=== PATIENT | female | born 1975 | race Caucasian/White ===

== ENCOUNTER 2024-06-24 19:26 | Emergency (ER) | payer OTHER, SELFPAY ==
[2024-06-24 19:29] VITALS: BP 150/108
[2024-06-24 19:50] LABS: Urine Albumin Negative (Neg - Trace); Urine Bilirubin Negative (Negative); Urine Character Clear (Clear); Urine Color Yellow; Urine Glucose Negative (Negative); Urine Ketone Negative (Negative); Urine Leukocyte Trace (Negative); Urine Nitrite Negative (Negative); Urine Occult Blood Negative (Negative); Urine Urobilinogen Negative (Neg - 1+)
[2024-06-24 19:52] VITALS: BMI 36.1
[2024-06-24 20:01] LABS: Urine Bacteria Few (Negative); Urine Squamous Cell >30 /LPF (Few)
[2024-06-24 20:09] LABS: % Basophils 0.5 % (0-2); % Eosinophils 1.8 % (0-6); % Immature Granulocytes 0.3 % (0-0.5); % Lymphocytes 40.9 % (20.5-51.1); % Monocytes 12.3 % (1.7-9.3); % Neutrophils 44.2 % (42.2-75.2); Absolute Eosinophils 0.1 10^3/uL (0-0.7); Absolute Monocytes 0.9 10^3/uL (0.1-0.6); Absolute Neutrophils 3.3 10^3/uL (1.4-6.5); Hematocrit 38.9 % (37.0-47.0); Hemoglobin 13.6 g/dL (12.0-16.0); Mean Corpuscular Hgb 29.7 pg (27.0-31.0); Mean Corpuscular Volume 84.9 fL (81.0-99.0); Mean Platelet Volume 9.8 fL (7.4-10.4); Nucleated Red Blood Cells % 0 %; Platelet Count 262 10^3/uL (130-400); Red Blood Cell Count 4.58 10^6/uL (4.20-5.40); Red Cell Dist. Width 12.9 % (11.5-14.5); White Blood Cell Count 7.4 10^3/uL (4.8-10.8)
--- NOTE | 2024-06-24 20:10 | ED.GENMED ---
History of Present Illness
General
Chief Complaint: Flank Pain
Source: patient
Time Seen by Provider: 06/24/24 19:53
History of Present Illness
History of Present Illness:
49-year-old female with past medical history of autoimmune hepatitis, previous kidney stones, colitis presenting to the emergency department for evaluation of left lower to mid quadrant abdominal pain that started yesterday, slightly worse today
prompting her to come into the ER for further evaluation. Yesterday patient notes that she did have some small liquidy stool, today had normal stool. Notes she does feel little bit nauseous but states that this is tolerable. No change in p.o.
intake to solids or liquids. Denies any fevers, chills, rigors. She does state the pain does feel different than her previous kidney stone pain. She took 2 Gas-X earlier today without any relief. Notes that she is currently working with her
surgical team at the [facility] due to multiple hernias and is supposed to be potentially having surgery in the coming new year for a large right-sided abdominal hernia.
Past History
Past History
ED Past Medical History: HTN and Other (Autoimmune hepatitis, colitis)
ED Past Surgical History: , Orthopedic and Other
Social History
Tobacco: Non-smoker
Alcohol: None
Drug: None
Personal:
Living: with family
Review of Systems
Review of Systems
All Other Systems: ROS reviewed and negative except as documented in HPI and ROS
Phy Exam
Physical Exam
Physical Exam:
GENERAL: Alert , in no apparent distress
EYE: clear conjunctiva b/l
HEAD: NCAT
ENT: o/p clr, mmm.
CARDIAC: Regular rate and rhythm .
LUNGS: Clear breath sounds bilaterally, no acute respiratory distress, no wheezes/rales/rhonchi
ABDOMEN: Soft, mild to moderate left mid abdominal tenderness to lower quadrant abdominal tenderness, no r/g, no cvat
NEUROLOGICAL: Alert and oriented
SKIN: Warm and dry, skin intact.
MUSCULOSKELETAL: No edema, well perfused.
PSYCH: Normal and appropriate interaction.
Scores
Heart Failure Risk
Heart Failure Risk Score: Not Applicable
Heart Score for Chest Pain Patients
STEMI patient?: Not applicable
Withdrawal Assessment of Alcohol
Withdrawal Assessment Completed?: Not applicable
Course
Orders/Labs/Results
Orders:
Orders
06/24/24 19:42
Urinalysis Reflex To Culture Urgent
Date Specimen was Collected: 06/24/24
Time Specimen was Collected: 19:41
Urine Microscopic Reflex Cult Urgent
Urine Culture Urgent
MICHELINE Source: U
Specimen Description:
Date Specimen was Collected: 06/24/24
Time Specimen was Collected: 19:41
06/24/24 19:53
IV Insert/Care/Rem.- Treatment PRN
06/24/24 19:54
Test Result ONCE
06/24/24 20:01
Complete Blood Count/With Diff Urgent
Comprehensive Metabolic Panel Urgent
HCG, Serum Qualitative Screen Urgent
Comment: Notify provider if positive test present
Lipase Urgent
06/24/24 20:06
CT Abd/pelvis W Iv Cont Urgent
Comment:
Reason For Exam: LLQ pain, multiple hernias
Ketorolac [Toradol] 30 mg IV NOW STA
Abnormal Lab Results
06/24/24 06/24/24
19:42 20:01
Absolute Monos (auto) 0.9 H 10^3/uL
(0.1-0.6)
Monocytes % 12.3 H %
(1.7-9.3)
Glucose 112 H mg/dl
(70-99)
Lipase 368 H U/L
(23-300)
Leukocyte Esterase Rfl Trace A
(Negative)
Urine WBC (Reflex) 11-15 A /HPF
(0-5)
Urine Bacteria (Reflex) Few A
(Negative)
06/24/24 20:01
06/24/24 20:01
Vital Signs
Initial and Last Documented VS:
Initial Vital Signs
Pulse Resp BP Pulse Ox
100 22 150/108 99
06/24/24 19:29 06/24/24 19:29 06/24/24 19:29 06/24/24 19:29
Last Documented Vital Signs
Pulse Resp BP Pulse Ox
80 16 118/85 98
06/24/24 22:00 06/24/24 22:00 06/24/24 22:00 06/24/24 22:00
MDM/Problems Addressed
Differential Diagnosis Includes:
Diverticulitis, colitis, renal/ureteral colic, hernia, urinary tract infection
MDM/Problems Addressed:
49-year-old female presenting to the ER for evaluation of left mid to lower abdominal pain x 1 day, yesterday had some loose stool, today no abnormalities. Patient notes a history of kidney stone however states this pain feels different and she
does not have any flank or CVA tenderness. Will check labs, urine, CT imaging. Pain control with Toradol. Reassessment following.
Chronic conditions affecting care: Previous abdomnial surgery
*Radiology
Radiology exam reviewed: radiology read reviewed
*Pulse Oximetry
Patient hypoxic: no
*Critical Care Note
Total Time (30-74mins, 75-104mins- exclusive of procedures): Not Applicable
Patient Management
Social determinants of health affecting care: Strong social support
Escalation/DeEscalation of care consider admission/obs:
Patient's labs do show mild elevation of the lipase but are largely otherwise unremarkable. Patient notes symptoms are improved with medication here. CT scan with all chronic findings and nothing acute. Discussed liquid based diet for the next 24
to 48 hours. Patient to follow-up with her team at [place] and is otherwise aware of return precautions to the ER here.
ED Attending Note
-
Portions of this chart may have been created with voice recognition software.� Occasional wrong word or��sound alike� substitutions may have occurred due to the inherent limitations of voice recognition software.
Discharge Plan
Departure
Patient Disposition: Home (Routine Discharge)
Date of Disposition: 06/24/24
Time of Disposition: 21:25
Patient with high blood pressure during this ER visit?: Yes
Discharge Problem:
Abdominal pain, Abdominal hernia
Instructions: Abdominal Pain
Referrals:
Demetrius Arredondo MD [Family Provider] -
Interventions
Interventions:
*Risk Screen - Suicide Last Done: 06/24/24 19:29
*General Assessment Last Done: 06/24/24 19:45
*Neglect/Abuse Screening Last Done: 06/24/24 19:29
ED- Fall Risk Assessment Last Done: 06/24/24 19:45
*ED COVID-19 Vaccine History Last Done: 06/24/24 19:45
*Nursing Disposition Last Done: 06/24/24 22:00
CF-Sxpudd-Wucjrtamsq Assessment Last Done: 06/24/24 19:45
ED-Female Genitourinary Assessment Last Done: 06/24/24 19:45
Discharge Date and Time
Discharge Date/Time: 06/24/24 22:00
Print Language: CHINESE
[2024-06-24 20:26] LABS: HCG, Serum Qualitative Screen Negative
[2024-06-24 20:29] LABS: ALT (SGPT) 28 U/L (0-35); AST (SGOT) 35 U/L (14-36); Alkaline Phosphatase 55 U/L (38-126); Blood Urea Nitrogen 13 mg/dl (7-17); Calcium 9.5 mg/dl (8.4-10.2); Carbon Dioxide 22 mmol/L (22-30); Chloride 105 mmol/L (98-107); Estimated Creatinine Clearance > 125 ml/min; Glucose 112 mg/dl (70-99); Lipase 368 U/L (23-300); Potassium 3.6 mmol/L (3.5-5.1); Sodium 141 mmol/L (135-145); Total Bilirubin 0.2 mg/dl (0.2-1.3); Total Protein 6.6 g/dl (6.3-8.2); eGFR > 60.00
[2024-06-24] MEDS: TORADOL 30 MG IV (20:44)
[2024-06-24 22:00] VITALS: BP 118/85
== END 2024-06-24 22:00 | disposition home or self-care (01) ==
LOC: EMR 19:26
PROVIDERS: EMERGENCY PHYSICIAN Emergency Medicine; FAMILY PHYSICIAN Internal Medicine Gastroenterology
DX: K43.9 Ventral hernia without obstruction or gangrene (principal); I10 Essential (primary) hypertension; K75.4 Autoimmune hepatitis; Z87.442 Personal history of urinary calculi
CPT/HCPCS: 96374; 99284; 74177; 80053; 81003; 81015; 83690; 84703; 85025; 87086; Q9967

== ENCOUNTER 2024-10-22 11:58 | Emergency (ER) | payer OTHER, SELFPAY ==
[2024-10-22 12:02] VITALS: BP 123/90
[2024-10-22 12:23] LABS: % Basophils 0.4 % (0-2); % Eosinophils 3.3 % (0-6); % Immature Granulocytes 0.6 % (0-0.5); % Lymphocytes 17.6 % (20.5-51.1); % Monocytes 9.8 % (1.7-9.3); % Neutrophils 68.3 % (42.2-75.2); Absolute Eosinophils 0.2 10^3/uL (0-0.7); Absolute Monocytes 0.5 10^3/uL (0.1-0.6); Absolute Neutrophils 3.7 10^3/uL (1.4-6.5); Hemoglobin 14.3 g/dL (12.0-16.0); Mean Corpuscular Hgb 28.9 pg (27.0-31.0); Mean Corpuscular Volume 84.8 fL (81.0-99.0); Mean Platelet Volume 10.4 fL (7.4-10.4); Nucleated Red Blood Cells % 0 %; Platelet Count 251 10^3/uL (130-400); Red Blood Cell Count 4.95 10^6/uL (4.20-5.40); Red Cell Dist. Width 13.4 % (11.5-14.5); White Blood Cell Count 5.4 10^3/uL (4.8-10.8)
[2024-10-22 12:38] LABS: ALT (SGPT) 63 U/L (0-35); AST (SGOT) 58 U/L (14-36); Alkaline Phosphatase 70 U/L (38-126); Blood Urea Nitrogen 13 mg/dl (7-17); Calcium 9.3 mg/dl (8.4-10.2); Carbon Dioxide 22 mmol/L (22-30); Chloride 105 mmol/L (98-107); Glucose 99 mg/dl (70-99); Lipase 137 U/L (23-300); Potassium 3.6 mmol/L (3.5-5.1); Sodium 137 mmol/L (135-145); Total Bilirubin 0.4 mg/dl (0.2-1.3); Total Protein 7.3 g/dl (6.3-8.2); eGFR > 60.00
[2024-10-22 13:45] VITALS: BMI 33.5
--- NOTE | 2024-10-22 14:05 | ED.GENMED ---
History of Present Illness
<Vivien Schwab, SUPERVIS[employer] - Last Filed: 10/23/24 20:25>
General
Chief Complaint: Abdominal Symptoms
Source: patient
Exam Limitations: none
Time Seen by Provider: 10/22/24 13:19
Nursing documentation reviewed up to this point in time: agreed with
History of Present Illness
History of Present Illness:
49 yo female with h/o HTN, ulcerative colitis (takes Lialda), autoimmune liver disease (takes CellCept)had laparoscopic hernia repair 4 weeks ago, had one dose preop antibiotics only. Presents for generalized abdominal pain and diarrhea for past 3
days. Started with stomach cramps then watery diarrhea. Denies fever/chills. Feels nauseous but no vomiting. Has noted bright yellow mucus stools at times. Diarrhea any time she eats. Also has been belching a lot and gas.
Past History
<Vivien Schwab, [employer]PER[employer] - Last Filed: 10/23/24 20:25>
Past History
ED Past Medical History: HTN and Other (Autoimmune hepatitis, colitis)
ED Past Surgical History: , Orthopedic and Other
Social History
Tobacco: Non-smoker
Alcohol: None
Drug: None
Personal:
Living: with family
Review of Systems
<Vivien Schwab, SUPER[employer] - Last Filed: 10/23/24 20:25>
Review of Systems
Allergies reviewed?: Yes
All Other Systems: ROS reviewed and negative except as documented in HPI and ROS
Constitutional: Denies fever or chills
Respiratory: Denies trouble breathing
Cardiac: Denies chest pain
ABD/GI: Reports abdominal pain, nausea and diarrhea; Denies vomiting or bloody stools
: Denies dysuria, frequency or difficulty voiding
Musculoskeletal: Reports no symptoms
Skin: Reports no symptoms
Neurological: Reports no symptoms
Phy Exam
<Vivien Schwab, SUPER[employer] - Last Filed: 10/23/24 20:25>
Physical Exam
Physical Exam:
GENERAL: No acute distress. A&Ox3.
CONSTITUTIONAL: Afebrile.
EYES: clear, conjunctivae normal
ENMT: moist mucus membranes, Pharynx nl
RESPIRATORY: Regular respirations, nonlabored, lungs clear.
CARDIOVASCULAR: Regular rate and rhythm, no murmurs, no rubs.
GI: Rotund, generally tender, normal BS
MUSCULOSKELETAL: Moves with ease. Well perfused.
SKIN: Warm, dry, pink
PSYCH: Normal mood and affect. Well kept, interactive and appropriate
NEUROLOGIC: Awake, alert and oriented. No focal neurological deficits
Course
<Vivien Schwab, SUPER[employer] - Last Filed: 10/23/24 20:25>
Orders/Labs/Results
Orders:
Orders
10/22/24 12:09
Complete Blood Count/With Diff Urgent
Comprehensive Metabolic Panel Urgent
Lipase Urgent
10/22/24 14:04
0.9% Sodium Chloride 1000 ml [Nss] 1,000 ml IV BOLUS
Ondansetron Injectable [Zofran] 4 mg IV NOW STA
10/22/24 14:06
CT Abd/Pel (IV only)-DH only Urgent
Comment:
Reason For Exam: pain across mid abdome hx ulcerative colitis
10/22/24 17:20
Lactic Acid Urgent
10/22/24 17:36
Lorazepam [Ativan] 0.25 mg IV NOW STA
10/22/24 18:45
HYDROmorphone [Dilaudid] 0.5 mg IV NOW STA
10/22/24 20:26
Ondansetron Injectable [Zofran] 4 mg IV NOW STA
10/22/24 20:27
Ondansetron Injectable [Zofran] 4 mg .ROUTE .[facility] ONE
10/22/24 22:37
Metoclopramide [Reglan] 10 mg .ROUTE .[facility] ONE
Metoclopramide [Reglan] 10 mg IV NOW STA
Abnormal Lab Results
10/22/24
12:09
Absolute Lymphs (auto) 1.0 L 10^3/uL
(1.2-3.4)
Immature Gran % 0.6 H %
(0-0.5)
Lymphocytes % 17.6 L %
(20.5-51.1)
Monocytes % 9.8 H %
(1.7-9.3)
AST 58 H U/L
(14-36)
ALT 63 H U/L
(0-35)
10/22/24 12:09
10/22/24 12:09
Vital Signs
Initial and Last Documented VS:
Initial Vital Signs
Temp Pulse Resp BP Pulse Ox
97.5 F 97 16 123/90 98
10/22/24 12:02 10/22/24 12:02 10/22/24 12:02 10/22/24 12:02 10/22/24 12:02
Last Documented Vital Signs
Temp Pulse Resp BP Pulse Ox
98.1 F 89 20 133/97 98
10/22/24 20:39 10/22/24 22:31 10/22/24 22:31 10/22/24 22:31 10/23/24 01:05
<Lucía Wilson MD - Last Filed: 10/22/24 14:23>
Orders/Labs/Results
Orders:
Orders
10/22/24 12:09
Complete Blood Count/With Diff Urgent
Comprehensive Metabolic Panel Urgent
Lipase Urgent
10/22/24 14:04
0.9% Sodium Chloride 1000 ml [Nss] 1,000 ml IV BOLUS
Ondansetron Injectable [Zofran] 4 mg IV NOW STA
10/22/24 14:06
CT Abd/Pel (IV only)-DH only Urgent
Comment:
Reason For Exam: pain across mid abdome hx ulcerative colitis
10/22/24 17:20
Lactic Acid Urgent
10/22/24 17:36
Lorazepam [Ativan] 0.25 mg IV NOW STA
10/22/24 18:45
HYDROmorphone [Dilaudid] 0.5 mg IV NOW STA
10/22/24 20:26
Ondansetron Injectable [Zofran] 4 mg IV NOW STA
10/22/24 20:27
Ondansetron Injectable [Zofran] 4 mg .ROUTE .STK-MED ONE
10/22/24 22:37
Metoclopramide [Reglan] 10 mg .ROUTE .STK-MED ONE
Metoclopramide [Reglan] 10 mg IV NOW STA
Abnormal Lab Results
10/22/24
12:09
Absolute Lymphs (auto) 1.0 L 10^3/uL
(1.2-3.4)
Immature Gran % 0.6 H %
(0-0.5)
Lymphocytes % 17.6 L %
(20.5-51.1)
Monocytes % 9.8 H %
(1.7-9.3)
AST 58 H U/L
(14-36)
ALT 63 H U/L
(0-35)
10/22/24 12:09
10/22/24 12:09
Vital Signs
Initial and Last Documented VS:
Initial Vital Signs
Temp Pulse Resp BP Pulse Ox
97.5 F 97 16 123/90 98
10/22/24 12:02 10/22/24 12:02 10/22/24 12:02 10/22/24 12:02 10/22/24 12:02
Last Documented Vital Signs
Temp Pulse Resp BP Pulse Ox
98.1 F 89 20 133/97 98
10/22/24 20:39 10/22/24 22:31 10/22/24 22:31 10/22/24 22:31 10/23/24 01:05
<Pradip Garcia PA-C - Last Filed: 10/22/24 23:15>
Orders/Labs/Results
Orders:
Orders
10/22/24 12:09
Complete Blood Count/With Diff Urgent
Comprehensive Metabolic Panel Urgent
Lipase Urgent
10/22/24 14:04
0.9% Sodium Chloride 1000 ml [Nss] 1,000 ml IV BOLUS
Ondansetron Injectable [Zofran] 4 mg IV NOW STA
10/22/24 14:06
CT Abd/Pel (IV only)-DH only Urgent
Comment:
Reason For Exam: pain across mid abdome hx ulcerative colitis
10/22/24 17:20
Lactic Acid Urgent
10/22/24 17:36
Lorazepam [Ativan] 0.25 mg IV NOW STA
10/22/24 18:45
HYDROmorphone [Dilaudid] 0.5 mg IV NOW STA
10/22/24 20:26
Ondansetron Injectable [Zofran] 4 mg IV NOW STA
10/22/24 20:27
Ondansetron Injectable [Zofran] 4 mg .ROUTE .STK-MED ONE
10/22/24 22:37
Metoclopramide [Reglan] 10 mg .ROUTE .STK-MED ONE
Metoclopramide [Reglan] 10 mg IV NOW STA
Abnormal Lab Results
10/22/24
12:09
Absolute Lymphs (auto) 1.0 L 10^3/uL
(1.2-3.4)
Immature Gran % 0.6 H %
(0-0.5)
Lymphocytes % 17.6 L %
(20.5-51.1)
Monocytes % 9.8 H %
(1.7-9.3)
AST 58 H U/L
(14-36)
ALT 63 H U/L
(0-35)
10/22/24 12:09
10/22/24 12:09
Vital Signs
Initial and Last Documented VS:
Initial Vital Signs
Temp Pulse Resp BP Pulse Ox
97.5 F 97 16 123/90 98
10/22/24 12:02 10/22/24 12:02 10/22/24 12:02 10/22/24 12:02 10/22/24 12:02
Last Documented Vital Signs
Temp Pulse Resp BP Pulse Ox
98.1 F 89 20 133/97 98
10/22/24 20:39 10/22/24 22:31 10/22/24 22:31 10/22/24 22:31 10/23/24 01:05
<Vivien Schwab, [employer]PER[employer] - Last Filed: 10/23/24 20:25>
MDM/Problems Addressed
Differential Diagnosis Includes:
colitis, diverticulitis, obstruction
MDM/Problems Addressed:
49 yo female with h/o HTN, ulcerative colitis (takes Lialda), autoimmune liver disease (takes CellCept)had laparoscopic hernia repair 4 weeks ago, had one dose preop antibiotics only. Presents for generalized abdominal pain and diarrhea for past 3
days. Started with stomach cramps then watery diarrhea. Denies fever/chills. Feels nauseous but no vomiting. Has noted bright yellow mucus stools at times. Diarrhea any time she eats. Also has been belching a lot and gas.
afebrile NAD
1:30 p..m.
CBC: normal
CMP: normal save for minimal elevation AST, ALT
Lipase normal
4:[address] abd/pelvis with po and IV contrast pending
Case discussed with Marc ALVARADO who will assume care from this point.
<Vivien Schwab NP - Last Filed: 10/23/24 20:25>
*Critical Care Note
Total Time (30-74mins, 75-104mins- exclusive of procedures): Not Applicable
<Pradip Garcia PA-C - Last Filed: 10/22/24 23:15>
Update Note
Update Note:
1603: Assumed care of pt from CHARMAINE Anderson. Pt with abd cramping and non bloody, watery diarrhea x 3 days. Hx of UC. 4 weeks s/p lap ventral hernia repair. No recent abx. Labs unremarkable, pending CT.
1804: [facility] Bariatric surgery Dr Quesada, will accept pt as ED-ED transfer
ED Attending Note
<Vivien Schwab [employer]PER[employer] - Last Filed: 10/23/24 20:25>
-
Portions of this chart may have been created with voice recognition software.� Occasional wrong word or��sound alike� substitutions may have occurred due to the inherent limitations of voice recognition software.
<Lucía Wilson MD - Last Filed: 10/22/24 14:23>
ED Attending Note
Patient seen and examined by attending physician: Yes
I performed the substantive portion of visit, reviewed & personally made and approve the management plan that is documented in note by myself or KJ.: Yes
ED Attending Note:
49-year-old female presents emergency department complaints of nausea, diarrhea, and abdominal cramping that started on Tuesday and continues. She describes the stool as loose and yellow, no mucus or blood like prior UC flares. She denies localized
pain, exacerbating relieving factors, fever. She does have a mild headache. Patient had a recent hernia repair about 4 weeks ago. She was most recently on antibiotics for sinusitis about 6 weeks ago. She denies sick contacts or recent travel.
On exam, mucous membranes very slightly dry. Abdomen soft, no rebound or guarding, nonspecific lower abdominal tenderness to palpation very mild. Labs unremarkable, awaiting CT and stool studies.
Discharge Plan
Departure
Patient Disposition: Acute Care Hospital
Date of Disposition: 10/22/24
Time of Disposition: 18:05
Discharge Problem:
Incarcerated intra-abdominal hernia
Prescriptions:
No Action
No Current Medications
0
Referrals:
NONE,* [Family Provider] -
Hospital Transfer
Other hospital: [facility]
I certify that the patient requires transfer: Yes
Discussed case with accepting physician: Dipak
Reason for transfer: higher level of care
Interventions
Interventions:
*Risk Screen - Suicide Last Done: 10/22/24 12:02
*General Assessment Last Done: 10/22/24 12:02
*Neglect/Abuse Screening Last Done: 10/22/24 12:02
*ED- Fall Risk Assessment Last Done: 10/22/24 13:45
*ED COVID-19 Vaccine History Last Done: 10/22/24 12:02
*Nursing Disposition Last Done: 10/23/24 01:05
KF-Jauhid-Wcryejpugt Assessment Last Done: 10/22/24 20:39
Discharge Date and Time
Discharge Date/Time: 10/23/24 01:10
Print Language: CROATIAN
[2024-10-22] MEDS: NSS 1000 IV (14:14)
[2024-10-22] MEDS: ZOFRAN 4 MG IV ×2 (14:14→20:32)
[2024-10-22 17:44] LABS: Lactic Acid 0.9 mmol/L (0.7-2.0)
[2024-10-22] MEDS: ATIVAN 0.25 MG IV (17:57)
[2024-10-22 18:31] VITALS: BP 122/83
[2024-10-22] MEDS: DILAUDID 0.5 MG IV (20:32)
[2024-10-22 20:39] VITALS: BP 137/90
[2024-10-22 22:31] VITALS: BP 133/97
[2024-10-22] MEDS: REGLAN 10 MG IV (22:38)
== END 2024-10-23 01:10 | disposition short-term general hospital (02) ==
LOC: EMR 11:58
PROVIDERS: Emergency Medicine; Physician Assistant; EMERGENCY PHYSICIAN Emergency Medicine
DX: K43.6 Other and unspecified ventral hernia with obstruction, without gangrene (principal); I10 Essential (primary) hypertension; K51.90 Ulcerative colitis, unspecified, without complications; Z79.899 Other long term (current) drug therapy; Z98.890 Other specified postprocedural states
CPT/HCPCS: 96374; 96375; 96376; 96361; 99285; 74177; 80053; 83605; 83690; 85025; Q9967